=== PATIENT | female | born 1985 | race Caucasian/White ===

== ENCOUNTER 2018-05-09 04:09 | Emergency (ER) | payer OTHER ==
[~2018-05-09] VITALS: Ht 160 cm; Wt 87.4 kg
[~2018-05-09 04:09] MED LIST: ADVIL200 MG PO; ALBUTEROL SULF8.5 GM IH; BACTRIM,SEPT1 TABLET PO; BLOOD PRESSURE MED; CALCIUM500 M4 PO; CORTIZONE-1028 GM TP; DOCUSATE SODIU100 MG PO; FERROUS SULFAT325 MG PO; LABETALOL HCL200 MG PO; LEVAQUIN750 MG PO; LO-DOSE ASPIRIN81 M2 PO; MACROBID100 MG PO; MOTRIN800 MG PO; NIFEDIPINE ER60 MG PO; POTASSIUM CHLOR8 ME2 PO; PRENATAL TABLE1 EAC3 PO
[2018-05-09 05:24] LABS: HEMATOCRIT 36.1 % (36.0-46.0); HEMOGLOBIN 12.6 G/DL (11.9-15.5); MCH 29.2 PG (29.0-34.0); MCHC 34.9 G/DL (30.0-36.0); MCV 83.6 FL (83-99); PLATELET COUNT 229 K/uL (156-360); RBC DIS.WIDTH-SD 36.5 % (39-53); RED BLOOD COUNT 4.32 M/uL (3.80-5.20); WHITE BLOOD COUNT 9.9 K/uL (4.1-10.2)
[2018-05-09 05:32] LABS: CHLORIDE 102 mEq/L (99-109); POTASSIUM 4.2 mEq/L (3.7-5.4); SODIUM 138 mEq/L (136-147)
[2018-05-09 05:33] LABS: GLUCOSE 106 mg/dL (70-99)
[2018-05-09 05:37] LABS: CREATININE 0.7 mg/dL (0.6-1.3); GFR ESTIMATE (CALCULATED) > 59 mL/min/
[2018-05-09 05:38] LABS: UREA NITROGEN (BUN) 14 mg/dL (9-23)
[2018-05-09 05:39] LABS: D-DIMER ELISA < 150.00 ng/mLDDU (<230)
[2018-05-09 05:46] LABS: TROP-I INTERPRETATION NEGATIVE; TROPONIN-I < 0.01 ng/mL (0.0-0.30)
[2018-05-09 06:20] VITALS: BP 124/84
== END 2018-05-09 06:21 | disposition home or self-care (01) ==
LOC: EME 04:09
PROVIDERS: Emergency Medicine
DX: R07.9 Chest pain, unspecified (principal); I10 Essential (primary) hypertension; Z88.0 Allergy status to penicillin
CPT/HCPCS: 71046; 80048; 84484; 85027; 85379; 93005; 99281; 99284